=== PATIENT | female | born 1940 | race Caucasian/White ===

== ENCOUNTER 2019-01-28 19:00 | Emergency (ER) | payer MEDICARE ==
[~2019-01-28] VITALS: Ht 157.5 cm; Wt 70.9 kg
[~2019-01-28 19:00] MED LIST: AUGMENTIN875TAB PO; CEPHALEXIN500 MG PO; NAPROSYN500 MG PO; SYNTHROID50 MCG PO; SYNTHROID75 MCG PO; ZESTRIL/PRIN5 MG/TA1 PO
[2019-01-28] MEDS ORDERED: VALACYCLOVIR500 MG PO (19:37)
[2019-01-28 20:03] VITALS: BP 135/60
== END 2019-01-28 19:53 | disposition home or self-care (01) ==
LOC: ED 19:00
DX: B02.9 Zoster without complications (principal)

== ENCOUNTER 2019-02-08 15:39 | Emergency (ER) | payer MEDICARE ==
[~2019-02-08] VITALS: Ht 157.5 cm; Wt 68.0 kg
[~2019-02-08 15:39] MED LIST changes: +VALACYCLOVIR500 MG PO
[2019-02-08] MEDS ORDERED: ZOVIRAX52 TOP (16:07)
[2019-02-08] MEDS ORDERED: PERCOCET 10/31 COMBO PO (16:07)
[2019-02-08] MEDS ORDERED: LEVOTHYROXIN50 MCG PO (16:22)
[2019-02-08] MEDS ORDERED: LISINOPRIL10 M1 PO (16:22)
[2019-02-08 16:25] VITALS: BP 130/78
== END 2019-02-08 16:25 | disposition home or self-care (01) ==
LOC: ED 15:39
DX: Z76.0 Encounter for issue of repeat prescription (principal); B02.9 Zoster without complications; I10 Essential (primary) hypertension; E03.9 Hypothyroidism, unspecified

== ENCOUNTER 2022-12-10 14:04 | Emergency (ER) | payer MEDICARE ==
[~2022-12-10] VITALS: Ht 157.5 cm; Wt 67.6 kg
[~2022-12-10 14:04] MED LIST changes: +LEVOTHYROXIN50 MCG PO; +LISINOPRIL10 M1 PO; +PERCOCET 10/31 COMBO PO; +ZOVIRAX52 TOP
[2022-12-10 14:10] VITALS: BP 116/73
[2022-12-10] MEDS ORDERED: VOLTAREN1%GEL TOP (15:32)
[2022-12-10] MEDS ORDERED: NAPROXEN500 MG PO (15:32)
[2022-12-10 15:36] VITALS: BP 116/73
== END 2022-12-10 15:40 | disposition home or self-care (01) ==
LOC: ED 14:04
DX: M25.572 Pain in left ankle and joints of left foot (principal); I10 Essential (primary) hypertension; E03.9 Hypothyroidism, unspecified